=== PATIENT | female | born 1975 | race African-American/Black ===

== ENCOUNTER 2019-04-19 09:38 | Emergency (ER) | payer OTHER ==
[~2019-04-19] VITALS: Ht 160 cm; Wt 87.1 kg
[2019-04-19 10:35] LABS: ABSOLUTE NEUTROPHILS 2.9 thou/uL (1.4-8.2); BASOPHILS 0.5 % (0.0-2.0); EOSINOPHILS 1.2 % (0.0-3.0); HEMATOCRIT 35.5 % (37.0-47.0); LYMPHOCYTES 41.5 % (24.0-44.0); MCH 21.8 pg (26.0-34.0); MCHC 31.1 g/dL (28.0-37.0); MCV 70.1 fL (80.0-100.0); MONOCYTES 6.1 % (1.0-8.0); PLATELET COUNT 275 thou/uL (150-400); POLYS 50.7 % (36.0-66.0); RBC 5.07 mil/uL (4.20-5.00); RDW 15.6 % (10.5-14.5); WBC 5.8 thou/uL (4.0-11.0)
[2019-04-19 10:45] LABS: CALCIUM 9.5 mg/dL (8.5-10.1); CREATININE 0.9 mg/dL (0.6-1.0); POTASSIUM 3.2 mmol/L (3.5-5.1)
[2019-04-19 10:51] LABS: ALBUMIN 3.7 g/dL (3.4-5.0); TOTAL BILIRUBIN 0.2 mg/dL (<0.1-1.0); TOTAL PROTEIN 7.9 g/dL (6.4-8.2)
[2019-04-19 10:58] LABS: URINE BILIRUBIN NEGATIVE (Negative); URINE BLOOD NEGATIVE (Negative); URINE CLARITY CLEAR; URINE COLOR YELLOW; URINE GLUCOSE-RANDOM* NEGATIVE (Negative); URINE KETONES NEGATIVE (Negative); URINE LEUKOCYTES NEGATIVE (Negative); URINE NITRITE NEGATIVE (Negative); URINE PROTEIN (DIPSTICK) NEGATIVE (Negative); URINE SPECIFIC GRAVITY <= 1.005 (1.005-1.035); URINE UROBILINOGEN 0.2 E.U./dl (0.2-1.0)
[2019-04-19] MEDS ORDERED: IRON325 PO (11:03)
[2019-04-19] MEDS ORDERED: CALCIUM 600 +1 EAC1 PO (11:03)
[2019-04-19] MEDS ORDERED: ESTRADIOL 1 MG T1 M1 PO (11:04)
[2019-04-19] MEDS ORDERED: LEVETIRACETAM1000 MG PO (11:04)
[2019-04-19] MEDS ORDERED: CYMBALTA20 MG PO (11:06)
[2019-04-19] MEDS ORDERED: HYDROCHLOROTHIA25 M2 PO (11:06)
[2019-04-19] MEDS ORDERED: PROTONIX40 M1 PO (11:06)
[2019-04-19] MEDS ORDERED: CELEXA20 MG PO (11:06)
[2019-04-19] MEDS ORDERED: NEURONTIN600 MG PO (11:07)
[2019-04-19] MEDS ORDERED: CARAFATE 1 GM TA1 G1 PO (11:07)
[2019-04-19] MEDS ORDERED: COLACE100 MG PO (11:07)
[2019-04-19] MEDS ORDERED: ZANAFLEX4 MG PO (11:08)
[2019-04-19] MEDS ORDERED: NAPROSYN500 MG PO (11:08)
[2019-04-19] MEDS ORDERED: BENTYL 20 MG TA20 M1 PO (11:08)
[2019-04-19] MEDS ORDERED: PROSCAR 5MG TABL5 MG PO (11:09)
[2019-04-19] MEDS ORDERED: MIRALAX17 GM PO (11:09)
[2019-04-19] MEDS ORDERED: CYCLOBENZAPRINE5 MG PO (11:10)
[2019-04-19 11:38] LABS: ANISOCYTOSIS 1+; MICROCYTES 1+; OVALOCYTES OCCASIONAL; POIKILOCYTOSIS SLIGHT
[2019-04-19] MEDS ORDERED: ZOFRAN ODT4 MG PO (11:44)
[2019-04-19 11:50] VITALS: BP 153/69
== END 2019-04-19 12:00 | disposition home or self-care (01) ==
LOC: ER 09:38
PROVIDERS: Emergency Medicine
DX: R10.31 Right lower quadrant pain (principal); I10 Essential (primary) hypertension; Z88.6 Allergy status to analgesic agent; Z88.8 Allergy status to other drugs, medicaments and biological substances; Z90.49 Acquired absence of other specified parts of digestive tract; Z90.710 Acquired absence of both cervix and uterus